=== PATIENT | female | born 1935 | race Caucasian/White ===

== ENCOUNTER → 2021-11-19 | Outpatient (CLI) | payer MEDICARE ==
--- NOTE | 2021-11-20 07:57 | US ---
EXAMINATION TYPE: US venous doppler duplex LE RT DATE OF EXAM: 11/19/2021 4:44 PM COMPARISON: NONE CLINICAL HISTORY: I80.9 Peripheral vascular disease, unspecified. pain in right leg, no h/o dvt SIDE PERFORMED: Right TECHNIQUE: The lower extremity deep venous system is examined utilizing real time linear array sonog latasha with graded compression, doppler sonography and color-flow sonography. VESSELS IMAGED: Common Femoral Vein Deep Femoral Vein Greater Saphenous Vein * Femoral Vein Popliteal Vein Small Saphenous Vein * Proximal Calf Veins (* superficial vessels) Peroneal v's PTV's Right Leg: Negative for DVT spoke with office regarding negative findings IMPRESSION: 1. Right lower extremity ultrasound the deep venous thrombosis
== END | disposition home or self-care (01) ==
LOC: RADUSWWP 16:02
PROVIDERS: ATTEND Orthopaedic Surgery
DX: I80.9 Phlebitis and thrombophlebitis of unspecified site (principal)

== ENCOUNTER → 2021-12-10 | Outpatient (CLI) | payer MEDICARE ==
--- NOTE | 2021-12-10 23:36 | CT ---
EXAMINATION TYPE: CT right knee - [facility] Protocol DATE OF EXAM: 12/10/2021 COMPARISON: None HISTORY: 86-year-old female Osteoarthritis right knee-[facility] knee CT DLP: 461 mGycm. Automated exposure control for dose reduction was used. TECHNIQUE: Scanning through the bilateral hips, right knee, and bilateral ankles for surgical plannin g purposes. Coronal and sagittal reconstructions performed. FINDINGS: There is mild to moderate degenerative change of both hips. Sigmoid diverticulosis. Uterus surgically absent. Pelvic phleboliths. Right knee shows slight lateral patellar translation with significant loss of cartilage and joint spa ce especially along the lateral facets of the patellofemoral compartment. There is a small knee joint effusion. No significant Marcelino's cyst. There is severe loss of cartilage and joint space within the lateral compartment. Tricompartmental degenerative spurring is present. Additional degenerative brar e proximal tibiofibular joint. Extensor mechanism appears intact. Additional imaging of the bilateral ankles show some generalized soft tissue swelling. IMPRESSION: 1. Right knee imaging for surgical planning purposes. 2. Cjux-[id number]-vzutkzsb bilateral hip OA. Sigmoid diverticulosis. 3. Right knee with tricompartmental osteoarthrosis, severe within the lateral compartment and along the lateral facets of the patellofemoral compartment. Small knee joint effusion.
== END | disposition home or self-care (01) ==
LOC: RADCTMAIN 13:20
PROVIDERS: ATTEND Orthopaedic Surgery
DX: M17.11 Unilateral primary osteoarthritis, right knee (principal); M16.0 Bilateral primary osteoarthritis of hip; K57.30 Diverticulosis of large intestine without perforation or abscess without bleeding; M25.461 Effusion, right knee

== ENCOUNTER 2022-01-08 13:47 | Observation (INO) | payer MEDICARE ==
[2022-01-07 10:15] VITALS: BMI 24.1
[~2022-01-08 13:47] MED LIST: ACETAMINOPHEN TAB 500 MG TAB PO PRN; MELOXICAM 7.5 MG TAB PO PRN; ONDANSETRON 4 MG/2 ML VIAL IVP ONE; ONDANSETRON 4 MG/2 ML VIAL IVP PRN; TRANEXAMIC ACID IN NACL,ISO-OS 1,000 MG in SALINE 1 100ML.BAG IVPB PRN
[2022-01-08] MEDS: LACTATED RINGERS 1,000 ML IV SCH (14:20)
[2022-01-08] MEDS ORDERED: DEXAMETHASONE SOD PHOSPHATE 4 MG/ML 1 ML VIAL IVP ONE (14:30)
[2022-01-08] MEDS ORDERED: MIDAZOLAM 2 MG/2 ML VIAL IVP ONE (15:00)
[2022-01-08] MEDS ORDERED: fentaNYL (PF) 50 MCG/ML 2 ML AMP IVP ONE (15:03)
--- NOTE | 2022-01-08 16:09 | P.ANPRN ---
Procedure Note - Anesthesia - Nerve Block Performed Right Adductor Canal Single Time Out Performed: Yes (1500) Date of Procedure: 01/08/22 Procedure Start Time: 15:01 Procedure Stop Time: 15:06 Location of Patient: PreOp Indication: Acute Post-Operative Pain, Requested by Surgeon Specifically requested for management of pain by DrGiovanna: Jaren Palmer Sedation Type: Sedate with meaningful contact maintained Preparation: Sterile Prep Position: Supine Catheter: None Needle Types: Pajunk Needle Gauge: 21 Ultrasound used to visualize needle placement: Yes Ultrasound used to observe medication spread: Yes Injectate: 0.5% Ropivacaine (see comment for volume) (15cc) Blood Aspirated: No Pain Paresthesia on Injection Noted: No Resistance on Injection: Normal Image Stored and Saved: Yes Events: Uneventful and Well Tolerated
--- NOTE | 2022-01-08 16:10 | P.ANPRN ---
Procedure Note - Anesthesia - Nerve Block Performed Right iPack Single Time Out Performed: Yes (1500) Date of Procedure: 01/08/22 Procedure Start Time: 15:07 Procedure Stop Time: 15:11 Location of Patient: PreOp Indication: Acute Post-Operative Pain, Requested by Surgeon Specifically requested for management of pain by DrGiovanna: Jaren Palmer Sedation Type: Sedate with meaningful contact maintained Preparation: Sterile Prep Position: Supine Catheter: None Needle Types: Pajunk Needle Gauge: 21 Ultrasound used to visualize needle placement: Yes Ultrasound used to observe medication spread: Yes Injectate: 0.5% Ropivacaine (see comment for volume) (15cc) Blood Aspirated: No Pain Paresthesia on Injection Noted: No Resistance on Injection: Normal Image Stored and Saved: Yes Events: Uneventful and Well Tolerated
[2022-01-08] MEDS ORDERED: SUCCINYLCHOLINE CHLORIDE 200 MG/10 ML VIAL IV ONE (16:19)
[2022-01-08] MEDS ORDERED: ROCURONIUM 10 MG/ML (5 ML VIAL) IV ONE (16:19)
[2022-01-08] MEDS ORDERED: PHENYLEPHRINE-0.9% NACL SYG 1,000 MCG/10 ML SYRINGE ONE (16:19)
[2022-01-08] MEDS ORDERED: TRANEXAMIC ACID IN NACL,ISO-OS 1,000 MG/100 ML BAG ONE (16:19)
[2022-01-08] MEDS ORDERED: fentaNYL (PF) 50 MCG/ML 2 ML AMP ONE (16:19)
[2022-01-08] MEDS ORDERED: HYDROmorphone (PF) 1 MG/ML ONE (16:19)
[2022-01-08] MEDS ORDERED: GLYCOPYRROLATE 0.2 MG/ML 2 ML VIAL ONE (16:19)
[2022-01-08] MEDS ORDERED: ROPIVACAINE 5 MG/ML 30 ML VIAL ONE (16:19)
[2022-01-08] MEDS ORDERED: LIDOCAINE 2% INJ 20 MG/ML (2 ML VIAL) ONE (16:19)
[2022-01-08] MEDS ORDERED: NEOSTIGMINE 1 MG/ML 10 ML VIAL ONE (16:19)
[2022-01-08] MEDS ORDERED: PROPOFOL 10 MG/ML 20 ML VIAL IV ONE (16:19)
[2022-01-08] MEDS ORDERED: ceFAZolin 3,000 MG in SODIUM CHLORIDE 0.9% IRRIGATIO 3,000 ML IRRIGATION ONE (16:24)
[2022-01-08] MEDS ORDERED: LACTATED RINGERS 1,000 ML IV ONE (18:50)
[2022-01-08] MEDS ORDERED: HYDROcodone/APAP 5-325MG 1 EACH TAB PO PRN (19:00)
[2022-01-08] MEDS ORDERED: HYDROmorphone 0.5 MG/0.5 ML SYRINGE IVP PRN ×2 (19:00)
[2022-01-08] MEDS ORDERED: bisacodyL 10 MG SUPP RECTAL PRN (19:00)
[2022-01-08] MEDS ORDERED: ONDANSETRON 4 MG/2 ML VIAL IVP PRN (19:00)
[2022-01-08] MEDS ORDERED: MAGNESIUM HYDROXIDE 2,400 MG/10 ML CUP PO PRN (19:00)
[2022-01-08] MEDS ORDERED: NALOXONE 0.4 MG/ML 1 ML VIAL IV PRN (19:00)
[2022-01-08] MEDS ORDERED: NA PHOS,M-B/NA PHOS,DI-BA 133 ML ENEMA RECTAL PRN (19:00)
[2022-01-08] MEDS: fentaNYL (PF) 50 MCG/ML 2 ML AMP IV PRN ×2 (19:10→19:18)
--- NOTE | 2022-01-08 19:25 | P.OP ---
Date of Procedure: 01/08/22 Procedure(s) Performed: PREOPERATIVE DIAGNOSIS: Right knee severe osteoarthritis genu valgum POSTOPERATIVE DIAGNOSIS: Right knee severe osteoarthritis with genu valgum OPERATION: Right knee cemented total replacement arthroplasty, robotic-assisted using Danny system from [employer]. ANESTHESIA: Gen. plus regional ESTIMATED BLOOD LOSS: 100 ml. CHERRY PICKER OPERATOR: Elton Gonsalves MD [employer] MANAGER: America Drew PA-C (assistance with: patient positioning, retraction, exposure, hemostasis, leg positioning, implantation, irrigation, closure, dressing) COMPLICATIONS: None apparent. COMPONENTS IMPLANTED: Triathlon knee components with anterior lipped (CS) tibial spacer INDICATIONS: with a history of right knee osteoarthritis. The patient's knee is end-stage, and conservative management has failed. The operation of knee replacement has been discussed at length in the office, as well as potential risks and complications. These are inclusive of, but not limited to: bleeding, infection, scarring, discomfort, blood vessel and nerve damage, need for further surgery, failure to relieve symptoms, persistence, recurrence, or worsening of problems, loosening, dislocation, wear, blood clot, pulmonary embolism, , gait dysfunction, stiffness, and other risks as discussed in the office. The patient elects to proceed and the consent form has been signed. PROCEDURE: The patient was taken to the operating room and positioned on the operating room table in the supine position. Anesthesia was initiated. Care was taken to make sure that all pressure points were adequately padded. The operative lower extremity was prepped and draped in the usual aseptic fashion using ChloraPrep. Ioban drape was used for the case and the patient received intravenous antibiotics within one hour of the incision. A pneumotourniquet and leg hunt were used for the case. The limb was exsanguinated with an Esmarch bandage and the tourniquet was inflated to 300 mmHg. Time-out was called confirming the patient's identity, side, procedure and administration of antibiotics and tranexamic acid. The incision was then created midline directly over the knee, carried down through skin and into the subcutaneous tissues and down to fascia. Full thickness subcutaneous medial flap was developed. Medial parapatellar arthrotomy was performed and the interior of the knee was inspected. There was end-stage osteoarthritis of the knee with a mild to moderate genu valgum type deformity. The fat pad was excised and proximal medial release on the tibia was completed using meticulous dissection and a curved osteotome. Note was made of significant attrition of the anterior and significant degenerative appearance of the cruciate ligaments. The anterior cruciate ligament as well as the posterior cruciate ligament were taken down. The exposure was excellent. The knee was flexed 90 degrees and the patella was everted. 4 mm pins were placed in the medial epicondylectomy the femur and an optical array was attached for the Danny system. Similarly, another array was placed within the wound using 4 mm pins at the level of the tibial tubercle. The arrays were tightened and confirmed to be in good position based on the position of the camera. Hip center was taken, followed by double checking the femoral and tibial checkpoints prior to registering the femur and tibia respectively. Once an accurate register was accomplished, spurs were removed around the knee and any necessary soft tissue releases were performed. The knee was taken through range of motion with stress medially and laterally in extension. Once these spatial measurements were taken, stress was performed using curved osteotomes in the medial and lateral compartments with the knee at 90 of flexion. The extension and flexion spaces were then balanced according to these spatial measurements, by rotating and translating the planned femoral and tibial components in the coronal, sagittal, and axial planes until a satisfactory balance was obtained. Once the gap balancing adjustments were performed on the computer, the robotic arm on the Danny robot was used to create the tibial and femoral cuts. These cuts were performed without incident, and the cut fragments were then removed. Medial and lateral menisci were removed at this time, then the posterior capsule was cauterized and any residual loose soft tissue within the lateral posterior and medial aspects of the interior of the knee were removed. Patellar resurfacing was performed using a reamer. The size of the required patellar component was estimated and the patellar surface was then reamed down to a residual thickness which would recreate the wyandotte thickness with the component. The exact placement of the patellar component was adjusted for position based on preoperative x-rays and intraoperative findings. Prior to placing trial components, anesthetic solution consisting of ropivicaine with epinephrine, ketorolac, and clonidine was injected carefully and methodically in a grid pattern using aspiration technique into the soft tissue around the knee circumferentially, starting with the deeper tissues first and progressing to fascia, and then finally the skin/subcutaneous tissue. Particular care was taken when injecting the posterior capsule. Trial components were then placed and the tibial component was allowed to self center, with care not to allow any significant internal rotation of the component. The position of this tibial trial was then marked. Confirmation of satisfactory soft tissue balance was confirmed based on the readings of the extension and flexion spaces and by kinematic testing of the knee manually. The latter showed excellent stability both medially and laterally, excellent alignment in the coronal plane, as well as excellent stability anteriorly and posteriorly with regard to tibial translation. There was no evidence of mid flexion instability. Trial components were removed and the cut surfaces of the bone were pulse lavaged thoroughly and dried. We planned for a CS liner and the tibia was prepared for a standard stemmed tibial Triathlon component. Cement was mixed on the back table and applied to the final components. Cement was then applied to the tibial surface and pressurized into the surface using finger pressurization technique. The tibial component was then applied and excess cement was removed after it was impacted securely and noted to be flush with the cut surface. In similar fashion, the cement was applied to the cut femoral surface, pressurized in using finger pressurization and the component was impacted into place. Excess cement was removed. The polyethylene spacer was then implanted and locked into position. The patellar component was then applied in similar technique and a patellar clamp was used to hold the patella in place as the cement hardened. Once the cement had fully hardened, the knee was reinspected. Any other cement extrusion was removed and final kinematic testing showed range of motion from 0 to 130 degrees with excellent stability, both medially and laterally and appropriate alignment of the leg. Patellar tracking was excellent. The knee was then thoroughly pulse lavaged with normal saline. The tourniquet was deflated and hemostasis was obtained with electrocautery and IV tranexamic acid, 1 g given at the start of the operation and 1 g at the start of closure. Wound soak was performed using Irricept (chlorhexidine) solution for 2 minutes. Closure was with interrupted 0 Vicryl sutures in the fascia/capsule and supplemented with #2 Quill, 2-0 Vicryl suture was used for the subcutaneous tissues and 4-0 Quill for the skin. Cyanoacrylate and Optefoam were then applied. A lightly compressive dressing was applied using Webril and an Andrew wrap. The patient was then transferred to stretcher and taken to the recovery room in stable condition. Sponge and needle counts were correct.
--- NOTE | 2022-01-08 19:40 | XR ---
EXAMINATION TYPE: XR knee limited RT DATE OF EXAM: 01/08/2022 COMPARISON: NONE HISTORY: Postop knee surgery TECHNIQUE: 2 views FINDINGS: There is a right knee prosthesis. Components are in anatomic position. IMPRESSION: No complicating process seen.
[2022-01-08] MEDS: SODIUM CHLORIDE 0.9% 1,000 ML IV SCH (20:00)
[2022-01-08] MEDS: SENNOSIDES-DOCUSATE SODIUM 1 EACH TAB PO SCH (21:05)
[2022-01-08] MEDS: HYDROcodone/APAP 7.5-325MG 1 EACH TAB PO PRN (21:05)
[2022-01-08] MEDS: ZOLPIDEM 5 MG TAB PO PRN (22:21)
[2022-01-08] MEDS: ASPIRIN 81 MG PO SCH (22:31)
[2022-01-09] MEDS: HYDROcodone/APAP 7.5-325MG 1 EACH TAB PO PRN ×4 (05:13→21:07)
[2022-01-09] MEDS: LACTATED RINGERS 1,000 ML IV SCH (07:09)
[2022-01-09] MEDS: SODIUM CHLORIDE 0.9% 1,000 ML IV SCH ×2 (07:10→14:01)
[2022-01-09] MEDS: MELOXICAM 7.5 MG TAB PO SCH (07:39)
[2022-01-09] MEDS: ASPIRIN 81 MG PO SCH ×2 (07:39→19:55)
[2022-01-09] MEDS: LEVOTHYROXINE 75 MCG TAB PO SCH (09:34)
[2022-01-09] MEDS: PANTOPRAZOLE 40 MG TABLET PO SCH (09:34)
[2022-01-09] MEDS: DULoxetine HCL 30 MG CAPSULE.DR PO SCH (09:35)
[2022-01-09] MEDS: AMITRIPTYLINE HCL 25 MG TAB PO SCH (09:35)
--- NOTE | 2022-01-09 09:37 | P.PN ---
Subjective Progress Note Date: 01/09/22 This patient is an 86-year-old female who is status-post right total knee arthroplasty on 01/08/[address] Palmer. Today is post-operative day #1. The patient is examined bedside. She states she is experiencing moderate pain in the right knee this morning. She has been ambulating with a walker and has been up with physical therapy. She denies chest pain, shortness of breath. Objective - Vital Signs Vital signs: Vital Signs Temp 98.2 F 01/09/22 08:00 Pulse 88 01/09/22 08:00 Resp 16 01/09/22 08:00 BP 119/73 01/09/22 08:00 Pulse Ox 98 01/09/22 08:00 FiO2 Intake & Output 01/08/22 01/09/22 01/09/22 18:59 06:59 18:59 Intake Total 751 1550 Output Total 50 Balance 701 1550 Weight 58.8 kg 58.8 kg Intake: IV 751 Intake, IV Titration 1250 Amount Sodium Chloride 0.9% 1, 1200 000 ml @ 100 mls/hr IV . Q10H [facility] Rx#:[id number] ceFAZolin 2 gm In Sodium 50 Chloride 0.9% 50 ml @ 100 mls/hr IVPB Q8HR [facility] Rx# :[id number] Oral 300 Output: Estimated Blood Loss 50 Other: Voiding Method Bedside Commode # Voids 3 # Bowel Movements 0 - Exam On examination, the patient is sitting in bed in no apparent distress. She is alert and oriented 3. On inspection of the right knee, there is a clean, dry, intact Optifoam dressing in place. Compression stocking also in place. No bleeding or drainage through the dressing. There is mild swelling of the knee. Motor and sensory function is intact of the right lower extremity. Right dorsalis pedis pulse is easily palpable. Calf is soft nontender to palpation. - Labs CBC & Chem 7: 01/08/22 14:23 Assessment and Plan Assessment: Status-post right total knee arthroplasty on 01/08/22. Post-operative day #1. Plan: - Weight-bearing to tolerance on operative extremity with a walker. - Physical therapy for gait and balance training. - Pain management as needed. - Aspirin 81 mg BID for DVT prophylaxis. - Keep operative dressing in place. - Internal medicine for anahy-operative medical management. - Anticipate discharge home tomorrow with home health care.
[2022-01-09] MEDS: HYDROmorphone 0.5 MG/0.5 ML SYRINGE IVP PRN ×4 (09:38→22:16)
[2022-01-09 09:41] LABS: Basophils # (A) 0.1 k/uL (0-0.2); Basophils % (A) 1 %; Eosinophils # (A) 0.1 k/uL (0-0.7); Eosinophils % (A) 1 %; HCT 38.3 % (34.0-46.0); Lymphocytes % (A) 14 %; MCHC 31.3 g/dL (31.0-37.0); MCV 95.7 fL (80.0-100.0); Mean Platelet Volume 8.4; Monocytes # (A) 1.2 k/uL (0-1.0); Monocytes % (A) 9 %; Neutrophils # (A) 10.5 k/uL (1.3-7.7); Neutrophils % (A) 75 %; Platelet Count 282 k/uL (150-450); RDW 12.2 % (11.5-15.5); WBC 14.1 k/uL (3.8-10.6)
--- NOTE | 2022-01-09 12:49 | P.CONS ---
History of Present Illness - Reason for Consult Consult date: 01/09/22 - History of Present Illness This is an 86 year old female with medical history of TIA, GERD, hyeertension, chronic kidney disease stage 3, hypothyroidism, sleep apnea with CPAP use, iron deficiency anemia. She is also a former smoker. Patient has history arthritis and underwent planned right knee total arthroplasty with Dr Palmer on 01/08/2022. Preoperative labs show a creatinine of 1.0. Patient is currently afebrile, heart rate 83, blood pressure 114/67, 98% room air. We have been asked to see patient in consultation for management of chronic medical conditions. Home medications will be resumed, would recommend to hold off norvasc for now to avoid post operative hypotension. Continue on omeprazole. Pain is being managed by primary. Patient does state she is having pain 10/10 to her right knee not controlled with oral pain medications. She reports frequent falls at home due to instability of the right knee which is why she had the surgery done. She is also pending evaluation by PT/OT. REVIEW OF SYSTEMS: CONSTITUTIONAL: No fever, no malaise, no fatigue. HEENT: No recent visual problems or hearing problems. Denied any sore throat. CARDIOVASCULAR: No chest pain, orthopnea, PND, no palpitations, no syncope. PULMONARY: No shortness of breath, no cough, no hemoptysis. GASTROINTESTINAL: No diarrhea, no nausea, no vomiting, no abdominal pain. NEUROLOGICAL: No headaches, no weakness, no numbness. HEMATOLOGICAL: Denies any bleeding or petechiae. GENITOURINARY: Denies any burning micturition, frequency, or urgency. MUSCULOSKELETAL/RHEUMATOLOGICAL: Reports 10/10 pain to the right knee ENDOCRINE: Denies any polyuria or polydipsia. The rest of the 14-point review of systems is negative PHYSICAL EXAMINATION: GENERAL: The patient is alert and oriented x3, not in any acute distress. Well developed, well nourished. HEENT: Pupils are round and equally reacting to light. EOMI. No scleral icterus. No conjunctival pallor. Normocephalic, atraumatic. No pharyngeal erythema. No thyromegaly. CARDIOVASCULAR: S1 and S2 present. No murmurs, rubs, or gallops. PULMONARY: Chest is clear to auscultation, no wheezing or crackles. ABDOMEN: Soft, nontender, nondistended, normoactive bowel sounds. No palpable organomegaly. MUSCULOSKELETAL: No joint swelling or deformity. EXTREMITIES: No cyanosis, clubbing, or pedal edema. Does have some peripheral edema to the right knee. NEUROLOGICAL: Gross neurological examination did not reveal any focal deficits. SKIN: No rashes. Assessment and plan Assessment Status post total right knee arthroplasty secondary to severe osteoarthritis History TIA with no residual deficits Hypertension currently normotensive recommending to hold off on norvasc at this time to avoid postoperative hypotension Chronic Kidney disease Stage 3 unsure baseline creatinine Hypothyroidism Sleep apnea with CPAP use Iron deficiency anemia history GI Prophylaxis DVT Prophylaxis as per primary Full Code Plan Resume appropriate home medications Hold norvasc Repeat BMP in AM PT/OT consultation pending Pain management per primary Encourage incentive spirometery Thank you kindly for this consultation The impression and plan of care has been dictated by Yenifer Cantrell Nurse Practitioner as directed. Dr. Asaf MD I have performed a history and physical examination and medical decision making of this patient, discussed the same with the dictator, and agree with the dictators assessment and plan as written, documented as a scribe. Based on total visit time, I have performed more than 50% of this visit. Past Medical History Past Medical History: Cancer, Chest Pain / Angina, CVA/TIA, GERD/Reflux, Hypertension, Osteoarthritis (OA), Renal Disease, Sleep Apnea/CPAP/BIPAP, Thyroid Disorder Additional Past Medical History / Comment(s): hx tia, hx of bleeding ulcers, chronic constipation., right leg gives out -hx falls with fx ribs, hx skin cancer. , back pain., iron deficiency anemia, migraines, chronic kidney disease stage 3A., c-pap machine. History of Any Multi-Drug Resistant Organisms: None Reported Past Surgical History: Adenoidectomy, Back Surgery, Cholecystectomy, Hysterectomy, Tonsillectomy Additional Past Surgical History / Comment(s): back surgery (september 2020), adhesions, Botox for frequent urination Past Anesthesia/Blood Transfusion Reactions: No Reported Reaction Past Psychological History: Depression Smoking Status: Former smoker Past Alcohol Use History: None Reported Additional Past Alcohol Use History / Comment(s): quit smoking 40 yrs ago, hx of less than 1/2 ppd. Past Drug Use History: None Reported - Past Family History Mother Family Medical History: Cancer Medications and Allergies Home Medications Medication Instructions Recorded Confirmed Type Aloe Vera 40 mg PO DAILY 01/07/22 History Amitriptyline HCl [Elavil] 25 mg PO DAILY 01/07/22 01/07/22 History Ascorbic Acid [Vitamin C] 1,000 mg PO DAILY 01/07/22 01/07/22 History Cholecalciferol [Vitamin D3 (25 25 mcg PO DAILY 01/07/22 01/07/22 History Mcg = 1000 Iu)] Cyanocobalamin (Vitamin B-12) 1,000 mcg PO DAILY 01/07/22 01/07/22 History [Vitamin B-12] DULoxetine HCL [Cymbalta] 30 mg PO DAILY 01/07/22 01/07/22 History Ferrous Sulfate [Feosol] 325 mg PO DAILY 01/07/22 01/07/22 History Gabapentin [Neurontin] 100 mg PO HS 01/07/22 01/07/22 History Levothyroxine Sodium 150 mcg PO DAILY 01/07/22 01/07/22 History Magnesium Oxide [Mag-Oxide] 100 mg PO HS 01/07/22 01/07/22 History Omeprazole 20 mg PO BID 01/07/22 01/07/22 History amLODIPine [Norvasc] 5 mg PO DAILY 01/07/22 01/07/22 History methocarbamoL [Methocarbamol] 750 mg PO BID 01/07/22 01/07/22 History polyethylene glycoL 3350 [Miralax] 17 gm PO DAILY 01/07/22 01/07/22 History traMADol HCL 50 mg PO Q6H PRN 01/07/22 01/07/22 History Aspirin [Adult Low Dose Aspirin EC] 81 mg PO BID #1 tab 01/08/22 Rx HYDROcodone/APAP 5-325MG [Volga 5] 1 - 2 each PO Q6HR PRN #32 tab 01/08/22 Rx Ondansetron Odt [Zofran Odt] 4 mg PO Q8HR PRN #14 tab 01/08/22 Rx Sennosides-Docusate Sodium 1 tab PO BID #60 tablet 01/08/22 Rx [Senokot-S] Allergies Allergy/AdvReac Type Severity Reaction Status Date / Time codeine Allergy Unknown Nausea & Verified 01/07/22 09:14 Vomiting, vertigo Physical Exam Vitals: Vital Signs Temp Pulse Pulse Resp BP Pulse Ox 01/09/22 02:17 98.0 F 83 17 114/67 98 01/08/22 21:01 98.3 F 95 17 132/63 94 L 01/08/22 19:45 96 17 121/59 95 01/08/22 19:30 88 16 122/60 96 01/08/22 19:14 95 17 117/73 96 01/08/22 18:59 98.1 F 90 16 159/69 96 01/08/22 15:06 86 16 108/67 96 01/08/22 14:12 97.7 F 92 20 131/61 94 L Intake and Output 01/08/22 01/09/22 01/09/22 22:59 06:59 14:59 Intake Total 751 1550 Output Total 50 Balance 701 1550 Intake: IV 751 Intake, IV Titration 1250 Amount Sodium Chloride 0.9% 1, 1200 000 ml @ 100 mls/hr IV . Q10H [facility] Rx#:[id number] ceFAZolin 2 gm In Sodium 50 Chloride 0.9% 50 ml @ 100 mls/hr IVPB Q8HR [facility] Rx# :[id number] Oral 300 Output: Estimated Blood Loss 50 Other: Voiding Method Bedside Commode # Voids 3 # Bowel Movements 0 Weight 58.8 kg Results CBC & Chem 7: 01/09/22 09:11 01/08/22 14:23
[2022-01-09] MEDS: GABAPENTIN 100 MG CAP PO SCH (19:55)
[2022-01-09] MEDS: SENNOSIDES-DOCUSATE SODIUM 1 EACH TAB PO SCH (19:55)
[2022-01-10] MEDS: SODIUM CHLORIDE 0.9% 1,000 ML IV SCH (02:02)
[2022-01-10] MEDS: HYDROmorphone 0.5 MG/0.5 ML SYRINGE IVP PRN ×2 (03:03→07:30)
[2022-01-10] MEDS: LACTATED RINGERS 1,000 ML IV SCH (04:29)
[2022-01-10] MEDS: LEVOTHYROXINE 75 MCG TAB PO SCH (06:13)
[2022-01-10] MEDS: HYDROcodone/APAP 7.5-325MG 1 EACH TAB PO PRN ×3 (06:14→17:41)
[2022-01-10] MEDS: DULoxetine HCL 30 MG CAPSULE.DR PO SCH (07:25)
[2022-01-10] MEDS: MELOXICAM 7.5 MG TAB PO SCH (07:25)
[2022-01-10] MEDS: ASPIRIN 81 MG PO SCH ×2 (07:25→20:43)
[2022-01-10] MEDS: AMITRIPTYLINE HCL 25 MG TAB PO SCH (07:26)
[2022-01-10] MEDS: PANTOPRAZOLE 40 MG TABLET PO SCH (07:26)
--- NOTE | 2022-01-10 09:30 | P.DS ---
Providers Expected date of discharge: 01/10/22 Attending physician: Jaren Palmer Consults: 01/08/22 19:00 Consult Physician Routine Consulting Provider: Melony Ron Consult Reason/Comments: Medical management Do you want consulting provider notified?: Yes Primary care physician: Justin Stroud MD Hospital Course: This is an 86-year-old female who was last seen with complaint of continued right knee pain. The patient has a known history of degenerative arthritis of the right knee and presents to discuss surgical options. After discussion and consideration the patient elects to proceed with total right knee arthroplasty. The patient is seen preoperatively by Dr. Stroud, Dr. Renteria and cleared for surgery. Patient underwent a right total knee arthroplasty on 01/08/[address] Palmer. The patient is admitted to [facility] for total right knee arthroplasty. The procedures performed without complication or sequelae. Patient is doing well postoperatively. Vital signs are stable at discharge. Labs are stable at discharge. Today is post-operative day #2. Patient is examined bedside. She states her pain is relatively well-controlled at this time. The patient is ambulating well with a walker with minimal assistance. She overall feels well and denies chest pain, shortness of breath. On examination, patient is sitting up in bed in no apparent distress. She is alert and orientated x3. On inspection of her right knee, there is a clean, dry, intact Optifoam dressing in place. Compression stocking in place. Motor and sensory function in place right lower extremity. Dorsalis pedis pulse easily palpable. Calf nontender. The patient is discharged to home with home health care on postop day #2 pending medical clearance. Please see orders and refer to the med rec for accurate list of medications. Plan - Discharge Summary Discharge Rx Participant: Yes New Discharge Prescriptions: New Ondansetron Odt [Zofran Odt] 4 mg PO Q8HR PRN #14 tab PRN Reason: Nausea Aspirin [Adult Low Dose Aspirin EC] 81 mg PO BID #1 tab HYDROcodone/APAP 5-325MG [Clyde 5] 1 - 2 each PO Q6HR PRN #32 tab PRN Reason: Pain Sennosides-Docusate Sodium [Senokot-S] 1 tab PO BID #60 tablet No Action Cholecalciferol [Vitamin D3 (25 Mcg = 1000 Iu)] 25 mcg PO DAILY Aloe Vera 40 mg PO DAILY Magnesium Oxide [Mag-Oxide] 100 mg PO HS amLODIPine [Norvasc] 5 mg PO DAILY Amitriptyline HCl [Elavil] 25 mg PO DAILY Ferrous Sulfate [Feosol] 325 mg PO DAILY Ascorbic Acid [Vitamin C] 1,000 mg PO DAILY traMADol HCL 50 mg PO Q6H PRN PRN Reason: Pain Omeprazole 20 mg PO BID Cyanocobalamin (Vitamin B-12) [Vitamin B-12] 1,000 mcg PO DAILY DULoxetine HCL [Cymbalta] 30 mg PO DAILY Levothyroxine Sodium 150 mcg PO DAILY Gabapentin [Neurontin] 100 mg PO HS methocarbamoL [Methocarbamol] 750 mg PO BID polyethylene glycoL 3350 [Miralax] 17 gm PO DAILY Discharge Medication List Aloe Vera 40 mg PO DAILY 01/07/22 [History] Amitriptyline HCl [Elavil] 25 mg PO DAILY 01/07/22 [History] Ascorbic Acid [Vitamin C] 1,000 mg PO DAILY 01/07/22 [History] Cholecalciferol [Vitamin D3 (25 Mcg = 1000 Iu)] 25 mcg PO DAILY 01/07/22 [History] Cyanocobalamin (Vitamin B-12) [Vitamin B-12] 1,000 mcg PO DAILY 01/07/22 [History] DULoxetine HCL [Cymbalta] 30 mg PO DAILY 01/07/22 [History] Ferrous Sulfate [Feosol] 325 mg PO DAILY 01/07/22 [History] Gabapentin [Neurontin] 100 mg PO HS 01/07/22 [History] Levothyroxine Sodium 150 mcg PO DAILY 01/07/22 [History] Magnesium Oxide [Mag-Oxide] 100 mg PO HS 01/07/22 [History] Omeprazole 20 mg PO BID 01/07/22 [History] amLODIPine [Norvasc] 5 mg PO DAILY 01/07/22 [History] methocarbamoL [Methocarbamol] 750 mg PO BID 01/07/22 [History] polyethylene glycoL 3350 [Miralax] 17 gm PO DAILY 01/07/22 [History] traMADol HCL 50 mg PO Q6H PRN 01/07/22 [History] Aspirin [Adult Low Dose Aspirin EC] 81 mg PO BID #1 tab 01/08/22 [Rx] HYDROcodone/APAP 5-325MG [Clyde 5] 1 - 2 each PO Q6HR PRN #32 tab 01/08/22 [Rx] Ondansetron Odt [Zofran Odt] 4 mg PO Q8HR PRN #14 tab 01/08/22 [Rx] Sennosides-Docusate Sodium [Senokot-S] 1 tab PO BID #60 tablet 01/08/22 [Rx] Follow up Appointment(s)/Referral(s): America Drew, PAC [PHYSICIAN SYSTEM SAFETY MANAGER] - 2 Weeks Activity/Diet/Wound Care/Special Instructions: May bear wt as tolerated w walker. Keep Optifoam dressing intact 7 days post op. Begin PT home care 2-3 days. May take Mobic as previously prescribed. Discharge Disposition: HOME WITH HOME HEALTH SERVICES
[2022-01-10 09:40] LABS: African American GFR (CKD) 67.1 (60.0-200.0); Anion Gap 7.9 mmol/L (10.00-18.00); BUN/Creat Ratio 23.67 Ratio (12.00-20.00); Blood Urea Nitrogen 21.3 mg/dL (9.0-27.0); Calcium 8.8 mg/dL (8.7-10.3); Carbon Dioxide 26.1 mmol/L (20.0-27.5); Non-African American GFR(CKD) 57.9 (60.0-200.0); Potassium 4.1 mmol/L (3.5-5.5)
--- NOTE | 2022-01-10 13:42 | P.PN ---
Subjective Progress Note Date: 01/10/22 This is an 86 year old female with medical history of TIA, GERD, hyeertension, chronic kidney disease stage 3, hypothyroidism, sleep apnea with CPAP use, iron deficiency anemia. She is also a former smoker. Patient has history arthritis and underwent planned right knee total arthroplasty with Dr Palmer on 01/08/2022. Preoperative labs show a creatinine of 1.0. Patient is currently afebrile, heart rate 83, blood pressure 114/67, 98% room air. We have been asked to see patient in consultation for management of chronic medical conditions. Home medications will be resumed, would recommend to hold off norvasc for now to avoid post operative hypotension. Continue on omeprazole. Pain is being managed by primary. Patient does state she is having pain 10/10 to her right knee not controlled with oral pain medications. She reports frequent falls at home due to instability of the right knee which is why she had the surgery done. She is also pending evaluation by PT/OT. 01/10/2022 Patient was evalauted by PT/OT yesterday and cleared for discharge home with homecare and PT services. Patient continues to report 9/10 pain to her right knee and has been mostly in bed today. She is using incentive spirometer. Reports no shortness of breath or chest pain. Tolerating some diet. Has some concern with discharging home with pain management. Case management not available today will discuss with patient what home care company she would like and fax over order and follow up with CM tomorrow to finish referral if patient does discharge today. Repeat BMP and CBC in 2 days recommended. Continue on bowel regimen while taking narcotics. Review of Systems Constitutional: Denied any fatigue denied any fever. Cardio vascular: denied any chest pain, palpitations Gastrointestinal: denied any nausea, vomiting, diarrhea Pulmonary: Denied any shortness of breath cough Neurologic denied any new focal deficits All inpatient medications were reviewed and appropriate changes in these medications as dictated in the interval history and assessment and plan. PHYSICAL EXAMINATION: GENERAL: The patient is alert and oriented x3, not in any acute distress. Well developed, well nourished. HEENT: Pupils are round and equally reacting to light. EOMI. No scleral icterus. No conjunctival pallor. Normocephalic, atraumatic. No pharyngeal erythema. No thyromegaly. CARDIOVASCULAR: S1 and S2 present. No murmurs, rubs, or gallops. PULMONARY: Chest is clear to auscultation, no wheezing or crackles. ABDOMEN: Soft, nontender, nondistended, normoactive bowel sounds. No palpable organomegaly. MUSCULOSKELETAL: No joint swelling or deformity. EXTREMITIES: No cyanosis, clubbing, or pedal edema. Does have some peripheral edema to the right knee. NEUROLOGICAL: Gross neurological examination did not reveal any focal deficits. SKIN: No rashes. Post surgical right knee. dressing intact. Assessment and plan Assessment Status post total right knee arthroplasty secondary to severe osteoarthritis History TIA with no residual deficits Hypertension currently normotensive recommending to hold off on norvasc at this time to avoid postoperative hypotension Chronic Kidney disease Stage 3 unsure baseline creatinine Hypothyroidism Sleep apnea with CPAP use Iron deficiency anemia history GI Prophylaxis DVT Prophylaxis as per primary Full Code Plan Hold norvasc Repeat BMP/CBC in 2 days PT/OT recommending home with home care Pain management per primary Encourage incentive spirometery Thank you kindly for this consultation Medically patient may be discharged if patient has proper equipment recommended by PT at home as well as homecare/PT referral and also pain management currently reporting 01/02 pain to right knee. The impression and plan of care has been dictated by Yenifer Cantrell Nurse Practitioner as directed. Dr. Asaf MD I have performed a history and physical examination and medical decision making of this patient, discussed the same with the dictator, and agree with the dictators assessment and plan as written, documented as a scribe. Based on total visit time, I have performed more than 50% of this visit. Objective - Vital Signs Vital signs: Vital Signs Temp 98.5 F 01/10/22 08:00 Pulse 86 01/10/22 08:00 Resp 16 01/10/22 08:00 BP 110/57 01/10/22 08:00 Pulse Ox 97 01/10/22 08:00 FiO2 Intake & Output 01/09/22 01/10/22 01/10/22 18:59 06:59 18:59 Intake Total 400 240 Balance 400 240 Intake: Oral 400 240 Other: Voiding Method Bedside Commode Toilet # Voids 2 1 - Labs CBC & Chem 7: 01/09/22 09:11 01/10/22 03:21 Labs: Abnormal Lab Results - Last 24 Hours (Table) 09/18/22 Range/Units 03:21 Anion Gap 7.90 L (10.00-18.00) mmol/L Est GFR (CKD-EPI)NonAf 57.9 L (60.0-200.0) BUN/Creatinine Ratio 23.67 H (12.00-20.00) Ratio Glucose 117 H (70-110) mg/dL Assessment and Plan Time with Patient: Less than 30
[2022-01-10] MEDS: SENNOSIDES-DOCUSATE SODIUM 1 EACH TAB PO SCH (20:43)
[2022-01-10] MEDS: GABAPENTIN 100 MG CAP PO SCH (20:43)
[2022-01-10] MEDS: ZOLPIDEM 5 MG TAB PO PRN (21:12)
[2022-01-10 23:34] VITALS: PULSE 91; RESP 16
[2022-01-11] MEDS: HYDROcodone/APAP 7.5-325MG 1 EACH TAB PO PRN ×3 (00:04→13:30)
[2022-01-11] MEDS: SODIUM CHLORIDE 0.9% 1,000 ML IV SCH ×3 (05:43→05:45)
[2022-01-11] MEDS: LEVOTHYROXINE 75 MCG TAB PO SCH (05:44)
[2022-01-11] MEDS: LACTATED RINGERS 1,000 ML IV SCH (05:45)
[2022-01-11] MEDS: PANTOPRAZOLE 40 MG TABLET PO SCH (05:47)
[2022-01-11] MEDS: AMITRIPTYLINE HCL 25 MG TAB PO SCH (07:50)
[2022-01-11] MEDS: ASPIRIN 81 MG PO SCH (07:51)
[2022-01-11] MEDS: DULoxetine HCL 30 MG CAPSULE.DR PO SCH (07:51)
[2022-01-11] MEDS: MELOXICAM 7.5 MG TAB PO SCH (07:51)
--- NOTE | 2022-01-11 08:26 | P.PN ---
Progress Note - Text Progress Note Date: 01/11/22 The patient's discharge was held due to pain issues. She is doing better today and will be discharged to home in stable condition. Please see previous d/c summary.
[2022-01-11 08:43] VITALS: BP 124/54; TEMP 98.4
[2022-01-11 09:12] LABS: Basophils # (A) 0.03 X 10*3/uL (0.00-0.10); Basophils % (A) 0.3 %; HCT 31.3 % (37.2-46.3); HGB 10.1 g/dL (12.0-15.0); Immature Grans, Automated 0.2 %; Lymphocytes # (A) 1.73 X 10*3/uL (0.90-5.00); Lymphocytes % (A) 19.7 %; MCH 30.6 pg (27.0-32.0); MCHC 32.3 g/dL (32.0-37.0); MCV 94.8 fL (80.0-97.0); Mean Platelet Volume 11.3 fL (9.5-12.2); Monocytes # (A) 1.19 X 10*3/uL (0.20-1.00); Monocytes % (A) 13.5 %; NRBC Per 100 WBC 0 /100 WBCS (0.0-0.0); Neutrophils # (A) 5.12 X 10*3/uL (1.80-7.70); Neutrophils % (A) 58.3 %; Platelet Count 201 X 10*3/uL (140-440); RDW 12.1 % (11.5-14.5); WBC 8.79 X 10*3/uL (4.50-10.00)
--- NOTE | 2022-01-11 14:17 | P.PN ---
Subjective Progress Note Date: 01/11/22 This is an 86 year old female with medical history of TIA, GERD, hyeertension, chronic kidney disease stage 3, hypothyroidism, sleep apnea with CPAP use, iron deficiency anemia. She is also a former smoker. Patient has history arthritis and underwent planned right knee total arthroplasty with Dr Palmer on 01/08/2022. Preoperative labs show a creatinine of 1.0. Patient is currently afebrile, heart rate 83, blood pressure 114/67, 98% room air. We have been asked to see patient in consultation for management of chronic medical conditions. Home medications will be resumed, would recommend to hold off norvasc for now to avoid post operative hypotension. Continue on omeprazole. Pain is being managed by primary. Patient does state she is having pain 10/10 to her right knee not controlled with oral pain medications. She reports frequent falls at home due to instability of the right knee which is why she had the surgery done. She is also pending evaluation by PT/OT. 01/10/2022 Patient was evalauted by PT/OT yesterday and cleared for discharge home with homecare and PT services. Patient continues to report 9/10 pain to her right knee and has been mostly in bed today. She is using incentive spirometer. Reports no shortness of breath or chest pain. Tolerating some diet. Has some concern with discharging home with pain management. Case management not available today will discuss with patient what home care company she would like and fax over order and follow up with CM tomorrow to finish referral if patient does discharge today. Repeat BMP and CBC in 2 days recommended. Continue on bowel regimen while taking narcotics. 01/11/2022 Patient continues to have pain to right knee rated 9/10, instructed patient to ice as needed. Pain management per orthopedic services. Patient has homecare in place for discharge and also has walker at home. She does report feeling some nausea today from pain. She has not had a BM. She has bowel regimen in place. White count is 8.79, hgb 10.1, sodium 139, potassium 4.1, BUN 21.3, creatinine 0.9, glucose 117. Today she is afebrile, heart rate 91, blood pressure 124/54, 95% room air. Review of Systems Constitutional: Denied any fatigue denied any fever. Cardio vascular: denied any chest pain, palpitations Gastrointestinal: denied any nausea, vomiting, diarrhea Pulmonary: Denied any shortness of breath cough Neurologic denied any new focal deficits All inpatient medications were reviewed and appropriate changes in these medications as dictated in the interval history and assessment and plan. PHYSICAL EXAMINATION: GENERAL: The patient is alert and oriented x3, not in any acute distress. Well developed, well nourished. HEENT: Pupils are round and equally reacting to light. EOMI. No scleral icterus. No conjunctival pallor. Normocephalic, atraumatic. No pharyngeal erythema. No thyromegaly. CARDIOVASCULAR: S1 and S2 present. No murmurs, rubs, or gallops. PULMONARY: Chest is clear to auscultation, no wheezing or crackles. ABDOMEN: Soft, nontender, nondistended, normoactive bowel sounds. No palpable organomegaly. MUSCULOSKELETAL: No joint swelling or deformity. EXTREMITIES: No cyanosis, clubbing, or pedal edema. Does have some peripheral edema to the right knee. NEUROLOGICAL: Gross neurological examination did not reveal any focal deficits. SKIN: No rashes. Post surgical right knee. dressing intact. Assessment and plan Assessment Status post total right knee arthroplasty secondary to severe osteoarthritis History TIA with no residual deficits Hypertension currently normotensive recommending to hold off on norvasc at this time to avoid postoperative hypotension Chronic Kidney disease Stage 3 unsure baseline creatinine Hypothyroidism Sleep apnea with CPAP use Iron deficiency anemia history GI Prophylaxis DVT Prophylaxis as per primary Full Code Plan Hold norvasc Repeat BMP/CBC in 2 days PT/OT recommending home with home care Pain management per primary Encourage incentive spirometery Patient may be discharged she is cleared medically. Continue bowel regimen on discharge. Thank you kindly for this consultation The impression and plan of care has been dictated by Nurse Laura Babcock as directed. Dr. Asaf MD I have performed a history and physical examination and medical decision making of this patient, discussed the same with the dictator, and agree with the dictat ors assessment and plan as written, documented as a scribe. Based on total visit time, I have performed more than 50% of this visit. Objective - Vital Signs Vital signs: Vital Signs Temp 98.4 F 01/11/22 07:00 Pulse 91 01/11/22 07:00 Resp 16 01/11/22 07:10 BP 124/54 01/11/22 07:00 Pulse Ox 95 01/11/22 07:00 FiO2 Intake & Output 01/10/22 01/11/22 01/11/22 18:59 06:59 18:59 Intake Total 1080 Balance 1080 Intake: Oral 1080 Other: Voiding Method Toilet Toilet Toilet # Voids 4 4 - Labs CBC & Chem 7: 01/11/22 03:31 01/10/22 03:21 Labs: Abnormal Lab Results - Last 24 Hours (Table) 01/11/22 Range/Units 03:31 RBC 3.30 L (4.10-5.20) X 10*6/uL Hgb 10.1 L (12.0-15.0) g/dL Hct 31.3 L (37.2-46.3) % Monocytes # 1.19 H (0.20-1.00) X 10*3/uL Eosinophils # 0.70 H (0.04-0.35) X 10*3/uL Assessment and Plan Time with Patient: Less than 30
== END 2022-01-11 14:05 | disposition home health service (06) ==
LOC: OR 13:47 → 4SSUR 18:59 → OR 01-11 06:40 → 4SSUR 01-11 06:40
PROVIDERS: ADMIT Orthopaedic Surgery; ATTEND Orthopaedic Surgery
DX: M17.11 Unilateral primary osteoarthritis, right knee (principal); M21.061 Valgus deformity, not elsewhere classified, right knee; R29.6 Repeated falls; K21.9 Gastro-esophageal reflux disease without esophagitis; I13.10 Hypertensive heart and chronic kidney disease without heart failure, with stage 1 through stage 4 chronic kidney disease, or unspecified chronic kidney disease; N18.31 Chronic kidney disease, stage 3a; Z86.73 Personal history of transient ischemic attack (TIA), and cerebral infarction without residual deficits; Z87.891 Personal history of nicotine dependence; E03.9 Hypothyroidism, unspecified; D50.9 Iron deficiency anemia, unspecified; K59.09 Other constipation; F32.A Depression, unspecified; G47.33 Obstructive sleep apnea (adult) (pediatric); M54.9 Dorsalgia, unspecified; G43.909 Migraine, unspecified, not intractable, without status migrainosus; Z85.828 Personal history of other malignant neoplasm of skin; Z87.81 Personal history of (healed) traumatic fracture; Z90.49 Acquired absence of other specified parts of digestive tract; Z83.3 Family history of diabetes mellitus; Z82.49 Family history of ischemic heart disease and other diseases of the circulatory system; Z90.710 Acquired absence of both cervix and uterus; Z98.890 Other specified postprocedural states; Z79.82 Long term (current) use of aspirin; Z79.890 Hormone replacement therapy; Z79.899 Other long term (current) drug therapy; Z88.5 Allergy status to narcotic agent
CPT/HCPCS: 27447; 97530; 97161; 64447; 64999; 76942; 84132; 85025 ×2; 88300; 73560; G0378; C1713; C1776; J2250; J0330; J1100; J2710; J0690 ×3; J2405; J3010; J1170 ×3; J2795; J2370; J2704; J2001

== ENCOUNTER → 2022-08-17 | Outpatient (CLI) | payer MEDICARE ==
--- NOTE | 2022-08-18 13:24 | MR ---
EXAMINATION TYPE: MR MRCP DATE OF EXAM: 08/17/2022 COMPARISON: None. HISTORY: Epigastric pain per patient. Calculus of bile duct with obstruction per order. Standard multiplanar, multisequence MRI departmental protocol Multiplanar, multisequence images of the abdomen were acquired without contrast. Diffusion weighted i maging was performed. Thin and thick slice MRCP imaging performed on a MRI scanner. FINDINGS: Liver/gallbladder/pancreas/biliary system: Gallbladder not seen and presumed surgically absent. Pancr eas is normal in size without concerning solid or cystic mass. Liver normal in size without solid or cystic mass. There is slight beaded appearance to the central intrahepatic and extrahepatic biliary d ucts. There is moderate central intrahepatic biliary dilatation and extrahepatic biliary dilatation u p to near 20 mm image 66 series 701 on MRCP imaging with abrupt tapering towards the duodenal ampulla image 63 and a short segment of nonvisualization in the pancreatic head correlating with coronal lucia ge 17 and 18. No pancreatic ductal dilatation which is visualized contiguously in the pancreatic head on MRCP images. No intraluminal defect or stone. Other: The spleen and both adrenal glands appear within normal limits. Some cortical thinning in the left kidney. No hydronephrosis clearly seen bilaterally. No suspicious pulmonary dilatation. Suscepti bility artifact from postsurgical change in the lower lumbar spine is present. No AAA. No intra-abdom inal ascites. IMPRESSION: Moderate biliary dilatation with abrupt tapering and then short segment of nonvisualizati on in the pancreatic head. Area of concern is away from the main pancreatic duct which is not dilated . No CBD stone. A subtle necrotic head neoplasm needs to be considered. Further investigation with ER CP/endoscopic ultrasound advised to further evaluate.
== END | disposition home or self-care (01) ==
LOC: RADMRIMAIN 06:35
PROVIDERS: ATTEND Internal Medicine Gastroenterology
DX: K80.37 Calculus of bile duct with acute and chronic cholangitis with obstruction (principal); K83.8 Other specified diseases of biliary tract
CPT/HCPCS: 74181

== ENCOUNTER 2022-10-03 14:14 | Emergency (ER) | payer MEDICARE ==
[2022-10-03 14:21] VITALS: TEMP 98.2
--- NOTE | 2022-10-03 15:05 | ED ---
Abdominal Pain HPI - General Source: patient Mode of arrival: ambulatory Limitations: no limitations <Gillian Nicolas - Last Filed: 10/03/22 14:59> <Stanley Vazquez - Last Filed: 10/03/22 18:55> - General Chief Complaint: Abdominal Pain Stated Complaint: Abdominal pain Time Seen by Provider: 10/03/22 14:59 - History of Present Illness Initial Comments: Patient is an 87-year-old male presenting to the emergency room with complaints of abdominal pain primarily in bilateral upper quadrants but is generalized at times. She reports nausea and one episode of vomiting yesterday she denies any diarrhea. She reports that she has a history of gallstones being stuck in her common bile duct along with issues with her pancreas resulting in her being hospitalized for several weeks at [facility] in June of this year. She reports that her pain is similar to that previous event. She reports shortness of breath due to the inability to take in a deep breath but denies any abdominal pain, headache, dizziness, dysuria, hematuria, fevers or chills. (Gillian Nicolas) Dictation was produced using [employer] dictation software. please excuse any grammatical, word or spelling errors. 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 She has history of cholecystectomy. For the last 48 hours she is had vomiting and right upper quadrant abdominal pain. at the bedside states that he cleaned up her emesis which appeared feculent. She denies any fevers. The ROS documented in this emergency department record has been reviewed and confirmed by me. Those systems with pertinent positive or negative responses otto ve been documented in the HPI. All other systems are other negative and/or noncontributory. (Stanley Vazquez) - Related Data Home Medications Medication Instructions Recorded Confirmed Amitriptyline HCl [Elavil] 25 mg PO DAILY 01/07/22 10/03/22 Ascorbic Acid [Vitamin C] 1,000 mg PO DAILY 01/07/22 10/03/22 Cholecalciferol [Vitamin D3 (25 25 mcg PO DAILY 01/07/22 10/03/22 Mcg = 1000 Iu)] Cyanocobalamin (Vitamin B-12) 1,000 mcg PO DAILY 01/07/22 10/03/22 [Vitamin B-12] DULoxetine HCL [Cymbalta] 30 mg PO BID 01/07/22 10/03/22 Ferrous Sulfate [Iron (65 MG 325 mg PO DAILY 01/07/22 10/03/22 Elemental)] Levothyroxine Sodium 150 mcg PO SUMOTUWETHFR 01/07/22 10/03/22 methocarbamoL [Methocarbamol] 750 mg PO TID PRN 01/07/22 10/03/22 Aspirin [Adult Low Dose Aspirin EC] 81 mg PO DAILY 10/03/22 10/03/22 Benzonatate [Tessalon Perle] 200 mg PO TID PRN 10/03/22 10/03/22 Desonide [Imer-Neel 0.05%] 1 applic TOPICAL BID 10/03/22 10/03/22 Dicyclomine [Bentyl] 10 mg PO QID PRN 10/03/22 10/03/22 Docusate [Colace] 100 mg PO BID 10/03/22 10/03/22 Ipratropium [place] [Ipratropium 2 spray NASAL TID 10/03/22 10/03/22 [place] 0.03%] Meloxicam [Mobic] 7.5 - 15 mg PO DAILY PRN 10/03/22 10/03/22 Pantoprazole [Protonix] 40 mg PO DAILY 10/03/22 10/03/22 Prochlorperazine [Compazine] 10 mg PO Q8H PRN 10/03/22 10/03/22 Ubrogepant [Ubrelvy] 100 mg PO DAILY PRN 10/03/22 10/03/22 ursodioL [Ursodiol] 300 mg PO TID 10/03/22 10/03/22 Allergies Allergy/AdvReac Type Severity Reaction Status Date / Time codeine AdvReac Unknown Nausea & Verified 10/03/22 17:51 Vomiting, vertigo Review of Systems ROS Other: All systems not noted in ROS Statement are negative. <Gillian Nicolas - Last Filed: 10/03/22 14:59> ROS Other: All systems not noted in ROS Statement are negative. <Stanley Vazquez - Last Filed: 10/03/22 18:55> ROS Statement: Those systems with pertinent positive or pertinent negative responses have been documented in the HPI. Past Medical History Past Medical History: Cancer, Chest Pain / Angina, CVA/TIA, GERD/Reflux, Hypertension, Osteoarthritis (OA), Renal Disease, Sleep Apnea/CPAP/BIPAP, Thyroid Disorder Additional Past Medical History / Comment(s): hx tia, hx of bleeding ulcers, chronic constipation., right leg gives out -hx falls with fx ribs, hx skin cancer. , back pain., iron deficiency anemia, migraines, chronic kidney disease stage 3A., c-pap machine. History of Any Multi-Drug Resistant Organisms: None Reported Past Surgical History: Adenoidectomy, Back Surgery, Cholecystectomy, Hysterectom y, Tonsillectomy Additional Past Surgical History / Comment(s): back surgery (september 2020), adhesions, Botox for frequent urination Past Anesthesia/Blood Transfusion Reactions: No Reported Reaction Past Psychological History: Depression Smoking Status: Former smoker Past Alcohol Use History: None Reported Past Drug Use History: None Reported - Past Family History Mother Family Medical History: Cancer <Gillian Nicolas - Last Filed: 10/03/22 14:59> General Exam Limitations: no limitations <Gillian Nicolas - Last Filed: 10/03/22 14:59> <Stanley Vazquez - Last Filed: 10/03/22 18:55> - General Exam Comments Initial Comments: Visual Physical Exam Vital signs reviewed General: Well-appearing, nontoxic, no acute distress. Head: Normocephalic, atraumatic Eyes: PERRLA, EOMI ENT: Airway patent Chest: Nonlabored breathing Skin: No visual rash, normal skin tone Neuro: Alert and oriented 3 Musculoskeletal: No gross abnormalities (Gillian Nicolas) PHYSICAL EXAM: General Impression: Alert and oriented x3, not in acute distress HEENT: Normocephalic atraumatic, extra-ocular movements intact, pupils equal and reactive to light bilaterally, mucous membranes moist. Cardiovascular: Heart regular rate and rhythm Chest: Able to complete full sentences, no retractions, no tachypnea Abdomen: abdomen soft, mild tenderness to the right upper quadrant, non- distended, no organomegaly Musculoskeletal: Pulses present and equal in all extremities, no peripheral edema Motor: no focal deficits noted Neurological: CN II-XII grossly intact, no focal motor or sensory deficits noted Skin: Intact with no visualized rashes Psych: Normal affect and mood (Stanley Vazquez) Course Vital Signs 10/03/22 10/03/22 10/03/22 14:20 16:00 17:00 Temperature 98.2 F Pulse Rate 87 83 82 Respiratory 20 18 18 Rate Blood Pressure 95/58 101/54 102/65 O2 Sat by Pulse 99 96 94 L Oximetry 10/03/22 18:00 Temperature Pulse Rate 80 Respiratory 18 Rate Blood Pressure 95/53 O2 Sat by Pulse 95 Oximetry Medical Decision Making - Lab Data Result diagrams: 10/03/22 16:13 10/03/22 16:13 <Stanley Vazquez - Last Filed: 10/03/22 18:55> - Medical Decision Making Was pt. sent in by a medical professional or institution (, PA, DIESEL CRANE OPERATOR, urgent care, hospital, or longterm...) When possible be specific @ -No Did you speak to anyone other than the patient for history (EMS, parent, family, police, friend...)? What history was obtained from this source @ - at the bedside states that patient's emesis seemed to be feculent Did you review nursing and triage notes (agree or disagree)? Why? @ -I reviewed and agree with nursing and triage notes Were old charts reviewed (outside hosp., previous admission, EMS record, old EKG, old radiological studies, urgent care reports/EKG's, longterm records)? Report findings @ -No old charts were reviewed Differential Diagnosis (chest pain, altered mental status, abdominal pain women, abdominal pain men, vaginal bleeding, musculoskeletal, weakness, fever, dyspnea, syncope, headache, dizziness, GI bleed, back pain, seizure, CVA, palpatations, mental health)? @ -Differential Abdominal Pain Women: Appendicitis, Cholecystitis, diverticulosis, ischemic bowel, pancreatitis, hepat itis, UTI, gastroenteritis, AAA, incarcerated hernia, bowel obstruction, constipation, inflammatory bowel, hepatitis, peptic ulcer disease, splenic infarction, perforated viscus, vulvitis, ovarian torsion, PID, kidney stone, placenta abruption, this is not meant to be an all-inclusive list X-rays interpreted by me (1pt min.). @ -None done CT interpreted by me (1pt min.). @ -Skin the abdomen and pelvis shows pneumobilia and findings suspicious for cholangitis U/S interpreted by me (1pt. min.). @ -None done What testing was considered but not performed or refused? (CT, X-rays, U/S, labs)? Why? @ -None What meds were considered but not given or refused? Why? @ -None Did you discuss the management of the patient with other professionals (professionals i.e. DrGiovanna, PA, DIESEL CRANE OPERATOR, lab, RT, psych nurse, director social, private client advisor, teacher, training systems officer, case technician)? Give summary @ -Case is discussed with Dr. Andre who is a GI specialist and [facility] who is agreeable for transfer if we do not have MRCP capabilities. I did speak with the hospitalist Dr. Carrera felt like patient wasn't a good candidate for admission her facility due to lack of GI specialist and MRCP capabilities. Case is discussed with Dr. Langston for urinary ER transfer Was smoking cessation discussed for >3mins.? @ -No Was critical care preformed (if so, how long)? @ -No Were there social determinants of health that impacted care today? How? (Homelessness, low income, unemployed, alcoholism, drug addiction, transportation, low edu. Level, literacy, decrease access to med. care, [facility], rehab)? @ -No Was there de-escalation of care discussed even if they declined (Discuss DNR or withdrawal of care, Hospice)? DNR status @ -No What co-morbidities impacted this encounter? (DM, HTN, Smoking, COPD, CAD, Cancer, CVA, ARF, Chemo, Hep., AIDS, mental health diagnosis, sleep apnea, morbid obesity)? @ -None Was patient admitted / discharged? Hospital course, mention meds given and route , prescriptions, significant lab abnormalities, going to OR and other pertinent info. @ -87-year-old female with clinical presentation concerning for ascending cholangitis. She has a soft blood pressure 95/58. Blood pressure improved with IV fluids. Laboratory evaluation shows leukocytosis of 23.0. Elevated transaminitis. Elevated renal markers. Negative lactic acidosis. Patient given IV fluids and antibiotics. Transferred to [facility] for further care. Undiagnosed new problem with uncertain prognosis? @ -No Drug Therapy requiring intensive monitoring for toxicity (Heparin, Nitro, Insulin, Cardizem)? @ -No Were any procedures done? @ -No Diagnosis/symptom? Acute, or Chronic, or Acute on Chronic? Uncomplicated (without systemic symptoms) or Complicated (systemic symptoms)? @ -1. Cholangitis Side effects of treatment? @ -No Exacerbation, Progression, or Severe Exacerbation? @ -No Poses a threat to life or bodily function? How? (Chest pain, [place], [place], pneumonia, PE, COPD, DKA, ARF, appy, cholecystitis, CVA, Diverticulitis, Homicidal, Suicidal, threat to staff... and all critical care pts) @ -yes (Stanley Vazquez) - Lab Data Lab Results 10/03/22 10/03/22 10/03/22 Range/Units 16:13 16:13 16:13 WBC 23.0 H (3.8-10.6) k/uL RBC 4.38 (3.80-5.40) m/uL Hgb 13.4 (11.4-16.0) gm/dL Hct 41.6 (34.0-46.0) % MCV 95.0 (80.0-100.0) fL MCH 30.6 (25.0-35.0) pg MCHC 32.2 (31.0-37.0) g/dL RDW 13.1 (11.5-15.5) % Plt Count 295 (150-450) k/uL MPV 8.8 Neutrophils % 89 % Lymphocytes % 5 % Monocytes % 4 % Eosinophils % 1 % Basophils % 0 % Neutrophils # 20.5 H (1.3-7.7) k/uL Lymphocytes # 1.2 (1.0-4.8) k/uL Monocytes # 0.8 (0-1.0) k/uL Eosinophils # 0.2 (0-0.7) k/uL Basophils # 0.0 (0-0.2) k/uL PT (9.0-12.0) sec INR (<1.2) APTT (22.0-30.0) sec Sodium 136 L (137-145) mmol/L Potassium 4.1 (3.5-5.1) mmol/L Chloride 97 L (98-107) mmol/L Carbon Dioxide 25 (22-30) mmol/L Anion Gap 14 mmol/L BUN 45 H (7-17) mg/dL Creatinine 2.17 H (0.52-1.04) mg/dL Est GFR (CKD-EPI)AfAm 23 (>60 ml/min/1.73 sqM) Est GFR (CKD-EPI)NonAf 20 (>60 ml/min/1.73 sqM) Glucose 153 H (74-99) mg/dL Plasma Lactic Acid Honorio 1.6 (0.7-2.0) mmol/L Calcium 9.8 (8.4-10.2) mg/dL Total Bilirubin 1.2 (0.2-1.3) mg/dL Conjugated Bilirubin 0.0 (0.0-0.3) mg/dL Unconjugated Bilirubin 0.3 (0.0-1.1) mg/dL Delta Bilirubin 0.9 H (0.0-0.2) mg/dL AST 304 H (14-36) U/L ALT 286 H (4-34) U/L Alkaline Phosphatase 314 H (38-126) U/L Total Protein 7.6 (6.3-8.2) g/dL Albumin 4.2 (3.5-5.0) g/dL Amylase 56 (30-110) U/L Lipase 137 (23-300) U/L 10/03/22 Range/Units 16:13 WBC (3.8-10.6) k/uL RBC (3.80-5.40) m/uL Hgb (11.4-16.0) gm/dL Hct (34.0-46.0) % MCV (80.0-100.0) fL MCH (25.0-35.0) pg MCHC (31.0-37.0) g/dL RDW (11.5-15.5) % Plt Count (150-450) k/uL MPV Neutrophils % % Lymphocytes % % Monocytes % % Eosinophils % % Basophils % % Neutrophils # (1.3-7.7) k/uL Lymphocytes # (1.0-4.8) k/uL Monocytes # (0-1.0) k/uL Eosinophils # (0-0.7) k/uL Basophils # (0-0.2) k/uL PT 11.2 (9.0-12.0) sec INR 1.1 (<1.2) APTT 27.5 (22.0-30.0) sec Sodium (137-145) mmol/L Potassium (3.5-5.1) mmol/L Chloride (98-107) mmol/L Carbon Dioxide (22-30) mmol/L Anion Gap mmol/L BUN (7-17) mg/dL Creatinine (0.52-1.04) mg/dL Est GFR (CKD-EPI)AfAm (>60 ml/min/1.73 sqM) Est GFR (CKD-EPI)NonAf (>60 ml/min/1.73 sqM) Glucose (74-99) mg/dL Plasma Lactic Acid Honorio (0.7-2.0) mmol/L Calcium (8.4-10.2) mg/dL Total Bilirubin (0.2-1.3) mg/dL Conjugated Bilirubin (0.0-0.3) mg/dL Unconjugated Bilirubin (0.0-1.1) mg/dL Delta Bilirubin (0.0-0.2) mg/dL AST (14-36) U/L ALT (4-34) U/L Alkaline Phosphatase (38-126) U/L Total Protein (6.3-8.2) g/dL Albumin (3.5-5.0) g/dL Amylase (30-110) U/L Lipase (23-300) U/L Disposition <Gillian Nicolas - Last Filed: 10/03/22 14:59> Time of Disposition: 18:54 - Out of Hospital Transfer - Req. Specs Out of Hospital Transfer - Requested Specifics: Other Emergency Center ([facility]) <Stanley Vazquez - Last Filed: 10/03/22 18:55> Clinical Impression: Cholangitis Disposition: OTHER INSTITUTION NOT DEFINED Condition: Fair Referrals: Justin Stroud MD [Primary Care Provider] - 1-2 days
[2022-10-03] MEDS ORDERED: SODIUM CHLORIDE 0.9% 1,000 ML IV STA (16:00)
[2022-10-03 16:03] VITALS: RESP 18
[2022-10-03] MEDS ORDERED: fentaNYL (PF) 50 MCG/ML 2 ML AMP IVP STA (16:19)
[2022-10-03 16:26] LABS: Basophils % (A) 0 %; Eosinophils # (A) 0.2 k/uL (0-0.7); Eosinophils % (A) 1 %; HCT 41.6 % (34.0-46.0); HGB 13.4 gm/dL (11.4-16.0); Lymphocytes # (A) 1.2 k/uL (1.0-4.8); Lymphocytes % (A) 5 %; MCH 30.6 pg (25.0-35.0); MCHC 32.2 g/dL (31.0-37.0); Mean Platelet Volume 8.8; Monocytes # (A) 0.8 k/uL (0-1.0); Monocytes % (A) 4 %; Neutrophils # (A) 20.5 k/uL (1.3-7.7); Neutrophils % (A) 89 %; Platelet Count 295 k/uL (150-450); RBC 4.38 m/uL (3.80-5.40); RDW 13.1 % (11.5-15.5)
[2022-10-03 16:41] LABS: INR 1.1 (<1.2); Partial Thromboplastin Time 27.5 sec (22.0-30.0); Prothrombin Time 11.2 sec (9.0-12.0)
[2022-10-03 16:42] LABS: ALT 286 U/L (4-34); AST 304 U/L (14-36); African American GFR (CKD) 23 (>60 ml/min/1.73 sqM); Albumin 4.2 g/dL (3.5-5.0); Alkaline Phosphatase 314 U/L (38-126); Amylase 56 U/L (30-110); Anion Gap 14 mmol/L; Bilirubin, Delta 0.9 mg/dL (0.0-0.2); Bilirubin,Unconjugated 0.3 mg/dL (0.0-1.1); Blood Urea Nitrogen 45 mg/dL (7-17); Calcium 9.8 mg/dL (8.4-10.2); Carbon Dioxide 25 mmol/L (22-30); Chloride 97 mmol/L (98-107); Glucose 153 mg/dL (74-99); Lipase 137 U/L (23-300); Non-African American GFR(CKD) 20 (>60 ml/min/1.73 sqM); Potassium 4.1 mmol/L (3.5-5.1); Sodium 136 mmol/L (137-145); Total Bilirubin 1.2 mg/dL (0.2-1.3); Total Protein 7.6 g/dL (6.3-8.2)
--- NOTE | 2022-10-03 18:08 | CT ---
EXAMINATION TYPE: CT abdomen pelvis wo con DATE OF EXAM: 10/03/2022 COMPARISON: None HISTORY: 87-year-old female abdominal pain, leukocytosis CT DLP: 417.3 mGycm. Automated exposure control for dose reduction was used. TECHNIQUE: Contiguous axial scanning of the abdomen and pelvis without IV contrast. Coronal and sagit minh reconstructions performed. FINDINGS: LUNG BASES: Reticular, groundglass, and fibrotic changes in the lower lungs with associated mild bron chiolectasis. No pleural effusion. LIVER/GB: Severe dilatation of the bile duct up to 1.5 cm. Dilatation extends into the intrahepatic s ystem. There appear to be a couple tiny foci of pneumobilia in the left lobe. Gallbladder appears mya gically absent. PANCREAS: Possible mild fullness in the pancreatic head region. This may be due to the bile duct enla rgement. SPLEEN: No significant abnormality is seen. ADRENALS: No significant abnormality is seen. KIDNEYS: No significant abnormality is seen. BOWEL: Small hiatal hernia. Left-sided colonic diverticulosis. No pericolonic inflammatory change. LYMPH NODES: No greater than 1cm abdominal or pelvic lymph nodes are appreciated. PELVIS: Uterus surgically absent. Bladder nondistended. Neither ovary is identified. Multiple pelvic phlebolith. No abnormal fluid collection in the pelvis. OSSEOUS STRUCTURES: Patient is status post L3-L4 posterior and interbody fusion. Laminectomies extend ing down to the L5 level. Advanced degenerative disc disease L4-L5 and L5-S1. Moderate T11-T12 and L1 -L2. Bilateral L5 pars defects incidentally noted. A trace grade 1 anterolisthesis of L5-S1. OTHER: No significant additional abnormality is seen. IMPRESSION: 1. Marked dilatation of the bile duct up to 1.5 cm. Extension into the intrahepatic system were a cou ple tiny foci of pneumobilia are present. There is abrupt cut off at the pancreatic head level. Consi roc stricture or obstructing mass. Correlate to exclude cholangitis given the foci of air. ERCP may b e needed. 2. Left-sided colonic diverticulosis, greatest in the sigmoid colon. No evidence for acute diverticul itis. 3. Fibrosis in the lower lungs. Groundglass could relate to interstitial pneumonitis such as NSIP or DIP.
[2022-10-03] MEDS ORDERED: PIPERACILLIN-TAZOBACTAM 3.375 GM in SODIUM CHLORIDE 0.9% 100 ML IVPB STA (18:10)
[2022-10-03 19:32] VITALS: PULSE 82
[2022-10-03 19:33] VITALS: BP 114/64
== END 2022-10-03 20:11 | disposition other institution (70) ==
LOC: EC 14:14
DX: K83.09 Other cholangitis (principal); I12.9 Hypertensive chronic kidney disease with stage 1 through stage 4 chronic kidney disease, or unspecified chronic kidney disease; N18.31 Chronic kidney disease, stage 3a; K21.9 Gastro-esophageal reflux disease without esophagitis; E07.9 Disorder of thyroid, unspecified; F32.A Depression, unspecified; Z79.82 Long term (current) use of aspirin; Z79.890 Hormone replacement therapy; Z79.899 Other long term (current) drug therapy; Z88.5 Allergy status to narcotic agent; Z86.73 Personal history of transient ischemic attack (TIA), and cerebral infarction without residual deficits; Z87.891 Personal history of nicotine dependence; Z90.49 Acquired absence of other specified parts of digestive tract
CPT/HCPCS: 36415; 80053; 82150; 82248; 83605; 83690; 85025; 85610; 85730; 87040; 74176; 99285; 96365; 96375; 96361; J2543; J3010